=== PATIENT | female | born 1990 | race Caucasian/White ===

== ENCOUNTER 2018-10-26 16:55 | Inpatient (IN) ==
--- NOTE | 2018-10-26 17:47 | PROVIDER DOCUMENTATION ---
HPI-Respiratory General - General Chief Complaint: Shortness of Breath Stated Complaint: HARD TO BREATH/CHEST PAIN Time Seen by Provider: 10/26/18 17:37 Source: patient Allergies/Adverse Reactions: Patient Allergies Allergy/AdvReac Type Severity Reaction Status Date / Time No Known Allergies Allergy Verified 10/26/18 17:05 - History of Present Illness-Resp Nature of Presenting Problem: 28 YOF PRESENTS WITH C/O R FLANK PAIN AND SOB. SHE REPORTS PAIN IS WORSE ON INSPIRATION. SHE DOES REPORT WHEN QUESTIONED A FEVER "THE OTHER DAY OF BUT NONE SINCE THIS TIME". SHE DENIES N/V/D, NASAL CONGESTION, COUGH, CHILLS Quality of Pain: reports: aching, sharp Severity in ED: reports: moderate Onset/Duration: reports: 4 days ago Timing: reports: still present Context: denies: recent foreign travel, insect bite (possible tick), recent chemotherapy, multiple patients with similar complaints, recent URI, out of meds, sports/exercise, aspiration/choking, other Exposure: reports: unknown cause Cough Quality/Degree: reports: no cough Episode Frequency: no prior episodes Current Respiratory Medication Therapy: Initiated none Modifying Factors: improves with: nothing Associated Symptoms: reports: fever/chills, shortness of breath Similar Symptoms Previously?: No Recently seen or treated by another doctor?: No Review of Systems - Adult - REVIEW OF SYSTEMS - ADULT Constitutional: reports: fever (X 1 DAY 2 DAYS AGO). denies: no symptoms reported, see HPI, chills, fatique, night sweats, weight gain, weight loss, other Eyes: reports: no symptoms reported. denies: see HPI, discharge, dry eyes, decreased vision, blurred vision, double vision, eye pain, redness, other Ears, Nose, Mouth & Throat: reports: no symptoms reported. denies: see HPI, ear discharge, ear pain, hearing loss, tinnitus, epistaxis, sinus problem, nose pain, loose teeth, mouth/dental pain, mouth swelling, hoarseness, throat pain, throat swelling, other Cardiovascular: reports: no symptoms reported. denies: see HPI, chest pain, edema, heart murmur, irregular heart rate, orthopnea, palpitations, poor circulation, PND, syncope, other Respiratory: reports: see HPI, shortness of breath. denies: no symptoms reported, chronic cough, cough, dyspnea on exertion, excessive sputum production, hemoptysis, pleurisy, wheezing, other Gastrointestinal: reports: no symptoms reported. denies: see HPI, abdominal pain, hematemesis, constipation, diarrhea, difficulty swallowing, frequent heartburn, nausea, poor appetite, rectal bleeding, vomiting, other Genitourinary: reports: see HPI, flank pain (R). denies: no symptoms reported, dysuria, discharge, frequency, frequent UTI's, hematuria, hesitency, incontinence, urinary retention, urgency, other Musculoskeletal: reports: no symptoms reported. denies: see HPI, bone pain, back pain, frequent leg cramps, joint pain, joint swelling, muscle aches, muscle weakness, neck pain, other Integumentary: reports: no symptoms reported. denies: see HPI, hives, hair loss, itching, mole changes, nail changes, rash, skin sores/ulcer, skin thickening, other Neurological: reports: no symptoms reported. denies: see HPI, ataxia, dizziness/vertigo, headache/migraines, loss of balance, numbness, paresthesia, seizure, slurred speech, syncope, tremors, other Psychiatric: reports: no symptoms reported. denies: see HPI, anxiety, anti- depressant use, alcohol/drug dependence, depression, emotional problems, insomnia, panic attacks, suicidal thoughts, other Endocrine: reports: no symptoms reported. denies: see HPI, change in skin pigment, excessive sweating, goiter, cold intolerance, heat intolerance, increased hunger, increased thirst, polyuria, other Hematologic/Lymphatic: reports: no symptoms reported. denies: see HPI, blood clots, easy bruising, low blood count, lymphedema, prolonged bleeding, swollen lymph nodes, transfusions, other Allergic/Immunologic: reports: no symptoms reported. denies: see HPI, allergic reactions, allergic rhinitis, asthma, eczema, food allergy, frequent infections, hay fever, hives, positive PPD, urticaria, other Past History - Adult - PAST MEDICAL HISTORY-ADULT Review of Records: reports: Nursing Assessment Review, Social history reviewed & non-contributory. Physical Exam-General - PHYSICAL EXAM-ADULT Initial Vital Signs Reviewed: Yes - CONSTITUTIONAL General Appearance: appears well, alert, no apparent distress - EYES Eyes: PERRL/EOMI, pink conjunctivae - HEAD, EARS, NOSE, MOUTH & THROAT HENMT: normocephalic/atraumatic, moist mucous membranes, normal ENT inspection - NECK Neck: non-tender, full range of motion, supple, normal inspection - RESPIRATORY Respiratory: chest non-tender, lungs clear, normal breath sounds, no pleuratic chest pain, no respiratory distress, no accessory muscle use, increased rate - CARDIOVASCULAR Cardiovascular: normal peripheral pulses, regular rate, rhythm, no edema, no gallop, no JVD, no murmur - GASTROINTESTINAL (ABDOMEN) Abdominal Exam: normal bowel sounds, non tender, soft - LYMPHATIC Lymphatic: no adenopathy - MUSCULOSKELETAL Back Exam: normal inspection, no CVA tenderness, no vertebral tenderness, other (R FLANK IS TENDER TO PALPATION) Extremity: normal range of motion, non-tender, normal gait - SKIN Integumentary: normal color, normal turgor, warm/dry - NEUROLOGIC Neurologic: grossly normal - PSYCHIATRIC Psych/Mental Status: normal mood/affect, oriented x 3 Progress - PLAN OF CARE/RESULTS Progress/Plan/Lab Results: Vital Signs - 8 hr 10/26/18 17:01 10/26/18 20:43 10/26/18 20:45 Temperature 97.7 F Pulse Rate 92 H Respiratory Rate 16 Blood Pressure 165/98 O2 Sat by Pulse Oximetry 96 95 96 10/26/18 21:00 10/26/18 21:15 10/26/18 21:30 Temperature Pulse Rate Respiratory Rate Blood Pressure O2 Sat by Pulse Oximetry 95 94 L 94 L 10/26/18 21:45 10/26/18 22:15 10/26/18 22:16 Temperature Pulse Rate 81 Respiratory Rate 18 Blood Pressure 155/104 O2 Sat by Pulse Oximetry 95 95 95 Bedside Urine ED: Urine Bedside Start: 10/26/18 17:14 Freq: ORDERED Status: Active Protocol: Activity Type Activity Date Activity User E-Sign Co-Sign Detail Recorded Client Recorded Date Recorded By Document 10/26/18 18:01 [id number] 10/26/18 18:01 [id number] 10/26/18 18:01 Point of Care [Bedside Point of Care] -Lot # HCG - Results Negative -Control Line Visible? Yes Laboratory Results - last 24 hr 10/26/18 10/26/18 10/26/18 18:09 19:22 19:22 WBC 13.86 H RBC 4.53 Hgb 14.5 Hct 42.0 MCV 92.7 MCH 32.0 H MCHC 34.5 RDW Std Deviation 12.3 Plt Count 286 MPV 10.7 H Immature Gran % (Auto) 0.3 Neut % (Auto) 71.0 Lymph % (Auto) 16.2 L Bureau % (Auto) 11.0 H Eos % (Auto) 1.2 Baso % (Auto) 0.3 Immature Gran # (Auto) 0.04 Neut # (Auto) 9.83 H Lymph # (Auto) 2.25 Bureau # (Auto) 1.53 H Eos # (Auto) 0.17 Baso # (Auto) 0.04 D-Dimer, Quantitative Sodium 139 Potassium 4.1 Chloride 102 Carbon Dioxide 24 L Anion Gap 13 BUN 10 Creatinine 0.5 Estimated GFR/1.73 m2 > 60 BUN/Creatinine Ratio 20 Glucose 93 Calculated Osmolality 276 Calcium 9.5 Total Bilirubin 0.26 AST 19 ALT 20 Alkaline Phosphatase 90 Total Protein 7.2 Albumin 3.8 Globulin 3.4 Albumin/Globulin Ratio 1.1 Urine Source CLEAN CATCH Urine Color YELLOW Urine Turbidity CLEAR Urine pH 6.0 Ur Specific [place] 1.026 Urine Protein TRACE A Ur Glucose (Stick) NEGATIVE Ur Ketones (Stick) NEGATIVE Urine Blood NEGATIVE Urine Nitrite NEGATIVE Urine Bilirubin NEGATIVE Urobilinogen Dipstick NORMAL Urine Leukocytes SMALL A Urine WBC (Auto) <10 Urine RBC (Auto) <10 U Epithel Cells (Auto) <10 Urine Bacteria (Auto) 1+ 10/26/18 19:22 WBC RBC Hgb Hct MCV MCH MCHC RDW Std Deviation Plt Count MPV Immature Gran % (Auto) Neut % (Auto) Lymph % (Auto) Bureau % (Auto) Eos % (Auto) Baso % (Auto) Immature Gran # (Auto) Neut # (Auto) Lymph # (Auto) Bureau # (Auto) Eos # (Auto) Baso # (Auto) D-Dimer, Quantitative 2.62 H Sodium Potassium Chloride Carbon Dioxide Anion Gap BUN Creatinine Estimated GFR/1.73 m2 BUN/Creatinine Ratio Glucose Calculated Osmolality Calcium Total Bilirubin AST ALT Alkaline Phosphatase Total Protein Albumin Globulin Albumin/Globulin Ratio Urine Source Urine Color Urine Turbidity Urine pH Ur Specific [place] Urine Protein Ur Glucose (Stick) Ur Ketones (Stick) Urine Blood Urine Nitrite Urine Bilirubin Urobilinogen Dipstick Urine Leukocytes Urine WBC (Auto) Urine RBC (Auto) U Epithel Cells (Auto) Urine Bacteria (Auto) Orders Category Date Time Status ED: Urine Bedside ORDERED Care 10/26/18 17:14 Active CHEST-2 VIEWS [RAD] Stat Exams 10/26/18 17:06 Completed CTA [CT ANGIOGRM PULMONARY ARTERIES] [CT] Stat Exams 10/26/18 20:14 Taken CBC WITH ELECTRONIC DIFF [HEME] Stat Lab 10/26/18 19:22 Completed CMP [COMPREHENSIVE METABOLIC PANEL] [CHEM] Stat Lab 10/26/18 19:22 Completed D-DIMER [COAG] Stat Lab 10/26/18 19:22 Completed UA NIMS W/REFLEX CULT [URINALYSIS] Routine Lab 10/26/18 18:09 Completed URINE CULTURE [RM] Routine Lab 10/26/18 18:51 Received Enoxaparin 1 mg/kg [Lovenox 1 mg/kg] Med 10/26/18 23:01 Once 1 each SUBQ NOW ONE Ketorolac [Toradol] Med 10/26/18 18:53 Discontinued 30 mg IM NOW ONE EKG [EKG] Stat Ther 10/26/18 17:06 Ordered Result Diagrams: 10/26/18 19:22 10/26/18 19:22 - EKG 1 Time of EKG reading by physician:: 17:10 EKG Read and Signed by:: Pb Prakash EKG Interpretation (*Must complete 3 of following elements*): Normal Rate: 88 Rhythm: NSR Bath: normal QRS: normal UT Interval: normal ST Wave: normal - CT/MRI 1 CT Study: Angiogram Impression: Abnormal (MULTIFOCAL PTE WITH R PLEURAL EFFUSION, R CONSOLIDATION THAT COULD REPRESENT EARLY INFACT. - summer) - CONSULTS/PCP/HOSPITALIST Notification #1 *Consult/PCP/Hospitalist*: DR MG @ 2051 Departure - Departure Date of Disposition Decision: 10/26/18 Time of Disposition Decision: 22:53 DIAGNOSIS: PTE (pulmonary thromboembolism), SOB (shortness of breath) Disposition: ADMITTED INPATIENT 09 Certified Medical Emergency: Emergent Condition: Stable Referrals and Follow-Ups: None,PCP [Primary Care Provider] - - Critical Care Note This patient required my direct & personal management of CC.: No Attestation - Physician/ OSWALDO Attestation Patient care was provided by Advanced Practice Provider:: Yes Advanced Practice Provider:: Jenni Leigh Advanced Practice Provider documentation review:: The Mid-level provider documentation, treatment plan and medical decision making was reviewed by the physician who agrees with all treatment and medical decision making by the MLP. The physician spent face to face time with patient:: No Advanced Practice Provider documentation review:: Supervising physician onsite and consulted in the evaluation and care of this patient. The physician did not have a face to face encounter with the patient.
[2018-10-26 18:18] LABS: URINE SOURCE CLEAN CATCH
[2018-10-26 18:27] LABS: BILIRUBIN URINE NEGATIVE (NEGATIVE); BLOOD URINE NEGATIVE (NEGATIVE); COLOR YELLOW; GLUCOSE URINE NEGATIVE (NEGATIVE); KETONE URINE NEGATIVE (NEGATIVE); LEUKOCYTES URINE SMALL (NEGATIVE); NITRITE URINE NEGATIVE (NEGATIVE); PROTEIN URINE TRACE mg/dL (NEGATIVE); SP GRAVITY URINE 1.026; TURBIDITY URINE CLEAR (CLEAR); UR EPITHELIAL CELLS <10 /HPF (<10); URINE BACTERIA 1+ /HPF; URINE RBC <10 /HPF (<10); URINE WBC <10 /HPF (<10); UROBILINOGEN URINE NORMAL (NORMAL)
[2018-10-26] MEDS ORDERED: TORADOL IM ONE (18:53)
[2018-10-26 19:40] LABS: BASO# 0.04 X1000 (0.0-0.2); BASO% 0.3 % (0.0-0.8); EOS# 0.17 X1000 (0.0-0.7); EOS% 1.2 % (0.0-10.0); HEMOGLOBIN 14.5 g/dL (12.0-16.0); IMM GRAN# 0.04 X1000 (0.0-0.04); IMM GRAN% 0.3 % (0.0-0.5); LYMPH# 2.25 X1000 (1.2-3.4); LYMPH% 16.2 % (20.5-51.1); MCHC 34.5 g/dL (33-37); MCV 92.7 FL (81-99); MONO# 1.53 X1000 (0.11-0.59); MPV 10.7 FL (7.4-10.4); NEUT# 9.83 X1000 (1.4-6.5); PLT 286 X1000 (130-400); RBC 4.53 XMIL (4.2-5.4); RDW 12.3 % (11.5-14.5); WBC 13.86 X1000 (4.8-10.8)
[2018-10-26 19:57] LABS: AGAP 13; ALB/GLOB RATIO 1.1; ALBUMIN 3.8 g/dL (3.5-5.0); ALKALINE PHOSPHATASE 90 U/L (32-104); BUN 10 mg/dL (8-22); CALCIUM 9.5 mg/dL (8.8-10.2); CHLORIDE 102 mmol/L (98-107); COSMO 276; CREATININE 0.5 mg/dL (0.5-0.9); ESTIMATED GFR > 60; GLUCOSE 93 mg/dL (70-104); GOT 19 U/L (10-30); GPT 20 U/L (10-36); POTASSIUM 4.1 mmol/L (3.5-5.1); SODIUM 139 mmol/L (136-145); TCO2 24 mmol/L (25-35); TOTAL BILIRUBIN 0.26 mg/dL (0.20-1.00); TOTAL PROTEIN 7.2 g/dL (6.3-8.3)
--- NOTE | 2018-10-26 21:02 | Diag Imaging Result Doc PS360 ---
EXAM: CHEST-2 VIEWS INDICATION: SOB TECHNIQUE: 2 views COMPARISON: None. FINDINGS: Inspiration is suboptimal. There is hazy opacity at the lung bases that likely represents atelectasis. However, mild infiltrate is also possible. There is no discrete pleural fluid collection or pneumothorax. The cardiomediastinal silhouette and central vasculature are grossly unremarkable. IMPRESSION: Bibasilar atelectasis +/- mild infiltrate. Electronically signed by Rome Perez 10/26/2018 9:00 PM
[2018-10-26] MEDS ORDERED: LOVENOX 1 MG/KG SUBQ ONE (23:01)
[2018-10-26] MEDS ORDERED: LOVENOX ONE (23:16)
--- NOTE | 2018-10-27 00:19 | HISTORY AND PHYSICAL ---
PRIMARY CARE PHYSICIAN: None. CHIEF COMPLAINT: Shortness of breath. HISTORY OF PRESENTING ILLNESS: A 28-year-old obese female without any significant past medical history, presented to emergency department with 4-days history of having worsening shortness of breath. The patient states that every time she took a deep breath her chest would hurt and her shortness of breath was worsening. The patient was evaluated in the emergency department, she had laboratories done which did show elevated D-dimer. Subsequently, she underwent CT angiogram, which did show a right lower lobe pulmonary embolism. Due to her presenting symptoms, she will require admission for further management. At time of my examination, patient denied any headache, fever, chills, hemoptysis, melena, weight changes, but complained of shortness of breath. PAST MEDICAL HISTORY: None. PAST SURGICAL HISTORY: Tonsillectomy. ALLERGIES: No known drug allergies. CURRENT MEDICATIONS: None. SOCIAL HISTORY: No history of smoking, alcohol, or illicit drug use. FAMILY HISTORY: Positive for coronary disease in Father. REVIEW OF SYSTEMS: Fourteen-point review of system as listed in HPI. Other systems negative. PHYSICAL EXAMINATION: GENERAL: Cooperative, friendly female. She is resting more comfortably now. VITAL SIGNS: Temperature 97.7 degrees, pulse 92, respirations 16, blood pressure 165/98. HEENT: Atraumatic, normocephalic. Extraocular movements intact. PERRLA. NECK: Supple. CHEST: Clear to auscultation. CARDIOVASCULAR: Regular rate and rhythm. ABDOMEN: Soft, obese, positive bowel sounds. EXTREMITIES: Trace edema. NEUROLOGIC: She is awake, alert, oriented x3. GENITOURINARY: No bladder distention. SKIN: Warm. LABORATORIES AND STUDIES: WBC 13.86, hemoglobin 14.5, hematocrit 42.0, platelets 286,000. Sodium 139, potassium 4.1, chloride 102, CO2 is 24, BUN is 10, creatinine 0.5. Glucose is 93. D-dimer is 2.62. ASSESSMENT: This is a 28-year-old female without any significant past medical history, presented to emergency department with complaint of shortness of breath for the past 4 days or so. She was evaluated in the emergency department. She had imaging done which did show a right lower lobe pulmonary embolism. Due to her presenting symptoms, she will call admission for further management. 1. Right lower lobe pulmonary embolism. 2. Obesity. PLAN: 1. We will admit patient to medical floor with telemetry. 2. We will start patient on Lovenox 1 mg/kg subcu q.12 hours. 3. Given the patient adequate pain control. 4. Put patient on supplemental oxygen. 5. Will do hypercoagulable workup. 6. We will check also venous Doppler's of the lower extremities. 7. We will continue to follow and reassess, make further recommendation based on patient's clinical course. cc: Brent South MD
[2018-10-27 03:40] LABS: BASO# 0.03 X1000 (0.0-0.2); BASO% 0.2 % (0.0-0.8); EOS% 1.5 % (0.0-10.0); HEMATOCRIT 39.8 % (37.0-47.0); HEMOGLOBIN 13.6 g/dL (12.0-16.0); IMM GRAN# 0.03 X1000 (0.0-0.04); IMM GRAN% 0.2 % (0.0-0.5); LYMPH# 2.59 X1000 (1.2-3.4); LYMPH% 20.1 % (20.5-51.1); MCH 31.9 PG (27-31); MCHC 34.2 g/dL (33-37); MCV 93.2 FL (81-99); MONO# 1.88 X1000 (0.11-0.59); MONO% 14.6 % (1.7-9.3); MPV 10.8 FL (7.4-10.4); NEUT# 8.18 X1000 (1.4-6.5); NEUT% 63.4 % (42.2-75.2); PLT 262 X1000 (130-400); RBC 4.27 XMIL (4.2-5.4); RDW 12.4 % (11.5-14.5); WBC 12.91 X1000 (4.8-10.8)
[2018-10-27 04:07] LABS: AGAP 12; BUN 11 mg/dL (8-22); CALCIUM 8.6 mg/dL (8.8-10.2); CHLORIDE 102 mmol/L (98-107); COSMO 281; CREATININE 0.7 mg/dL (0.5-0.9); ESTIMATED GFR > 60; GLUCOSE 111 mg/dL (70-104); POTASSIUM 3.4 mmol/L (3.5-5.1); SODIUM 141 mmol/L (136-145); TCO2 27 mmol/L (25-35)
--- NOTE | 2018-10-27 09:24 | Diag Imaging Result Doc PS360 ---
EXAM: CT ANGIOGRM PULMONARY ARTERIES INDICATION: SOB, ELEVATED D-DIMER TECHNIQUE: This exam was performed using automated exposure control, adjustment of mA or kV according to patient size, and/or use of iterative reconstruction technique. Thin section axial images and 3-D MIPS were obtained. COMPARISON: None. FINDINGS: Resolution is somewhat limited by motion artifact. There are filling defects identified in the right interlobar pulmonary artery extending into the right middle lobar pulmonary artery. There are other filling defects identified within the right lower lobe segmental arteries and left upper lobar pulmonary artery indicating pulmonary emboli. Clot burden is moderate. There is no evidence of heart strain. There is no cardiomegaly. There is no evidence of aortic dissection or aneurysm. There is no significant mediastinal or hilar lymphadenopathy. There is atelectasis at both lung bases, more prominent on the right and there is trace pleural fluid on the right as well. Given the opacity at the right lung base, developing pulmonary infarct cannot be excluded. There is no pneumothorax. Limited views of the upper abdomen are essentially unremarkable. IMPRESSION: 1.Bilateral acute pulmonary emboli, mainly on the right, with a moderate clot burden. 2.Trace effusion on the right and bibasilar atelectasis that is worse on the right. Superimposed developing infarct in the right lung base cannot completely be excluded given the presence of pulmonary emboli in the right lower lobe. Electronically signed by Rome Perez 10/27/2018 9:22 AM
[2018-10-27] MEDS: LOVENOX SUBQ SCH ×2 (11:23→22:03)
[2018-10-27] MEDS ORDERED: KLOR-CON PO ONE (11:45)
[2018-10-27] MEDS ORDERED: ZOFRAN IV PRN (11:46)
[2018-10-27] MEDS ORDERED: TYLENOL PO PRN (11:46)
--- NOTE | 2018-10-27 15:21 | ECHO REPORT ---
ORDER DATE: 10/27/2018 INDICATION: Pulmonary embolus. FINDINGS: 1. The right atrium appears to be normal in size. 2. Mild tricuspid regurgitation. There is insufficient data to accurately estimate the RV systolic pressure. 3. Right ventricle appears to be normal in size with normal RV systolic function. 4. Trace pulmonic insufficiency. 5. Normal left atrial size with a volume index of 24. 6. No mitral valve prolapse. Trace mitral regurgitation. No evidence of mitral stenosis. 7. Normal LV size, end-diastolic dimension of 5.3. Normal wall thicknesses with a posterior and interventricular septal wall thickness of 0.8 and 1.1 cm respectively. Normal LV systolic function. Estimated EF 60 to 65% with normal wall motion. 8. Aortic valve opens well. There is no evidence of stenosis or insufficiency. 9. Aorta appears normal in visualized segments. 10. No pericardial effusion seen. cc: MD Nahun Medellin MD
--- NOTE | 2018-10-27 16:19 | PROGRESS NOTE ---
DATE: 10/27/2018 SUBJECTIVE: Patient has no major complaints. No shortness of breath. No chest pain. No leg pain. OBJECTIVE: Blood pressure 143/84, heart rate 76, respiratory rate of 20, temperature 97.7 degrees.Cardiovascular: Regular rate and rhythm. Pulmonary: Bilateral breath sounds clear to auscultation. GI: Was soft, nontender, nondistended. Bowel sounds are positive. Extremities: Her left leg to me looked a little bit more swollen, but no cords were palpated. PROBLEM: PE. We will continue anticoagulation. She is on Lovenox. She is uninsured, so we will likely have to do Coumadin which we will initiate and follow. Her venous Dopplers. Preliminarily, looked like a left lower extremity DVT, popliteal and peroneal veins. She has really almost no risk factors for this. She is obese. She smoked up to about 2 months ago, but no oral contraceptives. No family history. 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 No prolonged immobilization. No trauma. No surgeries. So, it is very difficult to understand. She either has a thrombophilia, it is left-sided, so we may need to consider May-Thurner syndrome and we will continue to monitor. DISPOSITION: Pending her clinical status. We will need to get her set up with Coumadin and close follow-up. cc: Surjit Singh MD
[2018-10-27 16:55] LABS: INR 1.13; PROTIME 14.7 Seconds (11.0-16.0)
[2018-10-27] MEDS: COUMADIN PO SCH (22:02)
[2018-10-28 07:26] LABS: BASO# 0.03 X1000 (0.0-0.2); BASO% 0.3 % (0.0-0.8); EOS# 0.25 X1000 (0.0-0.7); EOS% 2.4 % (0.0-10.0); HEMATOCRIT 38.8 % (37.0-47.0); HEMOGLOBIN 12.9 g/dL (12.0-16.0); IMM GRAN# 0.03 X1000 (0.0-0.04); IMM GRAN% 0.3 % (0.0-0.5); MCH 31.2 PG (27-31); MCHC 33.2 g/dL (33-37); MCV 93.9 FL (81-99); MONO# 1.26 X1000 (0.11-0.59); MPV 11.2 FL (7.4-10.4); NEUT# 6.71 X1000 (1.4-6.5); PLT 276 X1000 (130-400); RBC 4.13 XMIL (4.2-5.4); RDW 12.1 % (11.5-14.5); WBC 10.48 X1000 (4.8-10.8)
[2018-10-28 07:51] LABS: AGAP 11; BUN 9 mg/dL (8-22); CALCIUM 8.9 mg/dL (8.8-10.2); CHLORIDE 98 mmol/L (98-107); COSMO 265; CREATININE 0.6 mg/dL (0.5-0.9); ESTIMATED GFR > 60; GLUCOSE 97 mg/dL (70-104); POTASSIUM 3.7 mmol/L (3.5-5.1); SODIUM 133 mmol/L (136-145); TCO2 24 mmol/L (25-35)
--- NOTE | 2018-10-28 08:38 | CONSULTATION ---
DATE OF CONSULTATION: 10/28/2018 CHIEF COMPLAINT: Shortness of breath. HISTORY OF PRESENT ILLNESS: This is a 28-year-old, obese, female with no significant past medical history, who presented to the emergency department a few days ago having worsening shortness of breath. She underwent a CT angiogram, and did show that she had a right lower lobe pulmonary embolism and an elevated D-dimer. PAST MEDICAL HISTORY: None. PAST SURGICAL HISTORY: Tonsillectomy. ALLERGIES: No known drug allergies. CURRENT MEDICATIONS: None. SOCIAL HISTORY: Denies tobacco, alcohol, or illicit drug use. FAMILY HISTORY: Positive for coronary disease with her father. REVIEW OF SYSTEMS: A 10-point review of systems was obtained, and the pertinents are listed within the HPI, otherwise noncontributory. PHYSICAL EXAMINATION: General: This is a 28-year-old, obese, female, resting quietly in bed. At the present time, denies shortness of breath. Vital Signs: Blood pressure 145/68, pulse 78, respirations 24, O2 saturation 99% on room air, temperature 97.7 degrees. HEENT: Head is atraumatic, normocephalic. PERRLA noted. Neck: Supple. Trachea midline. Cardiovascular: Regular rate and rhythm. Respiratory: Clear to auscultation in all lung hernandez. Abdomen: Soft. Positive bowel sounds in all 4 quadrants. Extremities: Without cyanosis. Trace edema. There are +2 pedal pulses. Neurologic: Alert and oriented x3. IMAGING AND LABORATORY DATA: White blood cells 12.91, red blood cells 4.27, hematocrit 39.8, hemoglobin 13.6. PTT 14.7, INR 1.13. D-dimer 2.62. Sodium 141, potassium 3.4, chloride 102, carbon dioxide 27, glucose 111, calcium 8.6. Chest x-ray on 10/26/2018 revealed bibasilar atelectasis, plus/minus mild infiltrate. ASSESSMENT AND PLAN: Pulmonary embolism. Continue anticoagulant therapy with Coumadin. Supplemental oxygen as needed. Will obtain echocardiogram and venous Doppler. Thank you for the courtesy of this consult. cc: Nahun Arroyo MD
[2018-10-28] MEDS: LOVENOX SUBQ SCH ×2 (14:00→22:10)
--- NOTE | 2018-10-28 14:54 | Diag Imaging Result Doc PS360 ---
EXAM: CT ABD/PELVIS W/IV CONT ONLY INDICATION: evaluate for May Thurner abnormality TECHNIQUE: This exam was performed using automated exposure control, adjustment of mA or kV according to patient size, and/or use of iterative reconstruction technique. COMPARISON: None. FINDINGS: Atelectasis and consolidation at both lung bases is again identified. There has been improvement since the prior CTA chest dated 10/26/2018. However, there are still densities at the right lung base that could represent pulmonary infarcts. The gallbladder is contracted. The liver, spleen, pancreas, adrenal glands, kidneys, and urinary bladder are unremarkable. There is a 4.4 cm left ovarian cyst. The reproductive tract is grossly unremarkable as imaged, otherwise. The appendix is normal. There is no evidence of bowel wall thickening or bowel obstruction. There is mild compression of the left common iliac vein by the overlying right common iliac artery, which may predispose to mild May Thurner syndrome. It is not causing occlusion. No dilated venous collaterals are identified. IMPRESSION: 1.Mild compression of the left common iliac vein by the right common iliac artery which could predispose to May Thurner syndrome. However, there is no complete occlusion and no discrete venous collaterals are identified. 2.Atelectasis/infiltrate, at the lung bases but mainly on the right have improved somewhat. However, there are still densities at the right lung base that could represent residual pulmonary infarct related to known acute pulmonary emboli. Electronically signed by Rome Perez 10/28/2018 2:51 PM
--- NOTE | 2018-10-28 17:39 | PROGRESS NOTE ---
DATE: 10/28/2018 SUBJECTIVE: The patient has no major complaints. OBJECTIVE: Vitals: Blood pressure is 144/92, heart rate 75, respiratory rate 28, temperature 98 degrees, 98% on room air. Cardiovascular: Regular rate and rhythm. Pulmonary: Bilateral breath sounds, clear to auscultation. GI: Soft, nontender, nondistended. Bowel sounds are positive. PROBLEM LIST: 1. Deep venous thrombosis/pulmonary embolism. 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 We will to continue Lovenox and Coumadin. She seems to be improving. 2. Deep venous thrombosis. We will continue anticoagulation as described, work on ambulation, and see how she does. DISPOSITION: She is uninsured, so we will have to achieve an INR above 2 before we can plan for discharge. We will continue to follow closely. cc: Surjit Singh MD
[2018-10-28] MEDS: COUMADIN PO SCH (22:11)
[2018-10-29 07:09] LABS: BASO# 0.03 X1000 (0.0-0.2); BASO% 0.3 % (0.0-0.8); EOS# 0.32 X1000 (0.0-0.7); EOS% 3.3 % (0.0-10.0); HEMATOCRIT 39.3 % (37.0-47.0); HEMOGLOBIN 13.4 g/dL (12.0-16.0); IMM GRAN# 0.03 X1000 (0.0-0.04); IMM GRAN% 0.3 % (0.0-0.5); LYMPH# 2.32 X1000 (1.2-3.4); LYMPH% 23.7 % (20.5-51.1); MCH 31.8 PG (27-31); MCHC 34.1 g/dL (33-37); MCV 93.3 FL (81-99); MONO# 1.04 X1000 (0.11-0.59); MONO% 10.6 % (1.7-9.3); MPV 10.7 FL (7.4-10.4); NEUT# 6.05 X1000 (1.4-6.5); NEUT% 61.8 % (42.2-75.2); PLT 320 X1000 (130-400); RBC 4.21 XMIL (4.2-5.4); WBC 9.79 X1000 (4.8-10.8)
[2018-10-29 07:40] LABS: AGAP 13; BUN 11 mg/dL (8-22); CHLORIDE 101 mmol/L (98-107); COSMO 275; CREATININE 0.6 mg/dL (0.5-0.9); ESTIMATED GFR > 60; GLUCOSE 106 mg/dL (70-104); POTASSIUM 3.9 mmol/L (3.5-5.1); SODIUM 138 mmol/L (136-145); TCO2 24 mmol/L (25-35)
[2018-10-29 07:41] LABS: CALCIUM 8.8 mg/dL (8.8-10.2)
--- NOTE | 2018-10-29 08:41 | EKG Report ---
Test Performed on : 10/26/2018 5:09:23 PM Test Reason : SOB Blood Pressure : / mmHG Vent. Rate : 088 BPM Atrial Rate : 088 BPM P-R Int : 160 ms QRS Dur : 078 ms QT Int : 338 ms P-R-T Axes : 029 077 002 degrees QTc Int : 408 ms Normal sinus rhythm. Normal ECG No previous ECGs available Unconfirmed Result
[2018-10-29] MEDS: LOVENOX SUBQ SCH ×3 (10:27→23:00)
[2018-10-29 14:00] LABS: INR 1.14; PROTIME 14.8 Seconds (11.0-16.0)
--- NOTE | 2018-10-29 15:25 | PULMONOLOGY PROGRESS NOTE ---
DATE: 10/29/2018 SUBJECTIVE: The patient is awake, alert, and conversant. She denies shortness of breath. She is without specific complaints today. PHYSICAL EXAMINATION: General: Reveals an obese white female resting comfortably, in no distress. Vital signs: Blood pressure 130/82, heart rate 56, respiratory rate 18, oxygen saturation 98% on room air. HEENT: Pupils are equal and reactive. Oropharynx appears clear. Neck: Supple. Chest: Clear to auscultation and percussion. Cardiac: S1, S2. Abdomen: Obese and soft. Extremities: Without edema. LABORATORIES: No new radiographic data. White blood count 9.79, hemoglobin 13.4, platelet count 320,000. Sodium 138, potassium 3.9, chloride 101, bicarbonate 24, BUN 11, creatinine 0.6. IMPRESSIONS: A 28-year-old with: 1. Acute pulmonary embolus. 2. Deep vein thrombosis. 3. Obesity. PLAN: 1. Continue anticoagulation. 2. Encourage weight loss. cc: Brannon Addison MD
[2018-10-29] MEDS ORDERED: COUMADIN PO ONE (18:15)
--- NOTE | 2018-10-29 18:34 | PROGRESS NOTE ---
DATE: 10/29/2018 SUBJECTIVE: She has no major complaints. She is doing well. OBJECTIVE: Vital signs: Blood pressure 136/56, heart rate of 66, respiratory rate of 19, temperature 97.9 degrees, 98% on room air. Cardiovascular: Regular rate and rhythm. Pulmonary: Bilateral breath sounds. Clear to auscultation. GI: Was soft, nontender, nondistended. Bowel sounds are positive. LABORATORY DATA: White count 9, hemoglobin and hematocrit 13 and 39, platelets 320,000. INR is only 1.14. PROBLEM LIST: Venous thromboembolism/pulmonary embolism. She is self-pay, so we are going to get her Coumadin because she will need treatment for at least 6 months. I do not think we can use any NOACs but overall she is improved. 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 We will see what is and we will go from there. DISPOSITION: Pending her clinical status. Home when INR is above 2 or at least close to it. I am going to bump up her Coumadin tonight. cc: Surjit Singh MD MTDD
--- NOTE | 2018-10-29 19:53 | Extremity Venous Study ---
PROCEDURE NAME: Venous U/S Bilateral Legs - 10/27/2018 REQUESTING PHYSICIAN: Dr. South. EMS INSTRUCTOR: Alejandro. TEST: Bilateral lower extremity venous study. INDICATIONS: Positive PE. EQUIPMENT: Viewpoint Digital Vivid E9 ultrasound system a 9 L-D transducer. FINDINGS: Images of the bilateral lower extremity venous systems were obtained in both sagittal and transverse planes. Doppler was used to evaluate veins for spontaneity, phasicity, respiratory excursion and digital augmentation. RESULTS: Nonocclusive acute DVT in the left popliteal vein and peroneal veins. INTERPRETATION: Nonocclusive acute DVT left popliteal vein and peroneal veins. Per the gi technician's note preliminary report was given Dr. Singh at 3:13 on the day of study. cc: MD Brent Sanderson MD
[2018-10-30 06:54] LABS: INR 1.26; PROTIME 16.1 Seconds (11.0-16.0)
[2018-10-30] MEDS: LOVENOX SUBQ SCH ×2 (13:15→22:40)
--- NOTE | 2018-10-30 15:10 | PROGRESS NOTE ---
DATE: 10/30/2018 SUBJECTIVE: Patient has no major complaints. She is doing well. She is very, understandably, upset. I would not say upset but not happy about having to continue to be here, but we do not have a lot of options because of her condition. OBJECTIVE: Vital signs: Blood pressure 148/64, heart rate 67, respiratory rate 20, temperature 98.1 degrees, 97% on room air. Cardiovascular: Regular rate and rhythm. Pulmonary: Bilateral breath sounds. Clear to auscultation. GI: Soft, nontender, nondistended. Extremities: Left lower extremity, there is no real swelling. PROBLEM: Venous thromboembolism, pulmonary embolism. The patient is on Coumadin and Lovenox. I am suspicious she has May-Thurner syndrome because she does have iliac artery, compression of her iliac vein on the left side, although not complete occlusion, but I think enough that it is suspicious for that. In any case, she will need anticoagulation. Right now does not have insurance for the medications since she is going to need to be on it skilled nursing, but we are continuing Lovenox and then adjusting Coumadin dosing until we can get INR therapeutic. It has bumped up a little bit, so I anticipate another 1 to 2 days and we should be able to get her home. cc: Surjit Singh MD
[2018-10-30] MEDS: COUMADIN PO SCH (21:29)
[2018-10-31 07:09] LABS: INR 1.42; PROTIME 17.6 Seconds (11.0-16.0)
[2018-10-31] MEDS: LOVENOX SUBQ SCH ×2 (10:15→22:03)
--- NOTE | 2018-10-31 16:10 | PROGRESS NOTE ---
DATE: 10/31/2018 SUBJECTIVE: Patient has no major complaints. OBJECTIVE: She seems to be doing okay. Blood pressure is 122/67, heart rate of 88, respiratory rate 24, temperature 98.2 degrees, and 98 percent on room air. Cardiovascular regular rate and rhythm. Pulmonary bilateral breath sounds clear to auscultation. GI is soft, nontender, nondistended. Bowel sounds are positive. INR is 1.42. PROBLEM LIST: 1. Venous thromboembolism, pulmonary embolism. We will continue Coumadin and Lovenox. We will continue to follow. 2. We will need to anticoagulate for at least 6 months, home when her INR is above 2. She is self-pay. We do not really have any other options long-term although she may get insurance in the next couple months. 3. We will continue to follow. cc: Surjit Singh MD
[2018-10-31] MEDS: COUMADIN PO SCH (22:01)
--- NOTE | 2018-11-01 07:23 | Diag Imaging Result Doc PS360 ---
EXAM: CHEST-1 VIEW 11/01/2018 HISTORY: SOB TECHNIQUE: AP portable at 0545 COMMENT: There are ill-defined opacities in both lung bases. This was also present on 10/26/2018 but is slightly worse. The appearance may be worsened in part due to relatively less optimal inspiration. IMPRESSION: Bibasilar atelectasis and/or pneumonia. Electronically signed by Canelo Napoles 11/01/2018 7:20 AM
[2018-11-01 07:41] LABS: HEMATOCRIT 38.5 % (37.0-47.0); HEMOGLOBIN 12.9 g/dL (12.0-16.0); MCH 31.8 PG (27-31); MCHC 33.5 g/dL (33-37); MCV 94.8 FL (81-99); MPV 10.4 FL (7.4-10.4); RBC 4.06 XMIL (4.2-5.4); RDW 12.1 % (11.5-14.5); WBC 9.9 X1000 (4.8-10.8)
[2018-11-01 07:57] LABS: INR 1.36
[2018-11-01 08:05] VITALS: BP 144/68
--- NOTE | 2018-11-01 10:09 | DISCHARGE SUMMARY ---
ADMISSION DATE: 10/27/2018 DISCHARGE DATE: 11/01/2018 She presented with shortness of breath. A 28-year-old black female with a past medical history that really was unremarkable. She presented to the emergency room, and had 4-day history of having worsening shortness of breath. The patient states that each time she took a breath she had a little bit of pleuritic pain in that right lateral side, and this intensified. In the emergency department, labs did show an elevated D-dimer. She underwent CT angiogram that showed right lower lobe pulmonary embolism so was admitted to the hospital, and put on anticoagulant. The patient has a lower extremity venous study noninvasive. She had a nonocclusive acute DVT in the left popliteal vein and peroneal veins. The patient I believe was started on Coumadin. She had an echocardiogram with Doppler on 10/27. Left ventricular size was normal, and ejection fraction 60% to 65%. Right ventricle appears to be normal in size. Normal right ventricular systolic function. Abdominal and pelvic CT with mild compression of the left common iliac vein by the right common iliac artery, which could predispose to May Thurner syndrome. However, there is no complete occlusion. No discrete venous collaterals are identified. Atelectasis versus infiltrate. Dr. Arroyo was consulted for pulmonary embolism. Continue anticoagulant, and started Coumadin. She had her chest x-ray done this morning bibasilar atelectasis. Clinically, no sign of pneumonia. She will need anticoagulation 6 months to a year. Her Protime was 17.0. It is important that she get follow up with her primary care and get Protime checked once a week. I am going to let her go home. Currently, she is getting Coumadin 7.5 mg at bedtime. We will let her go on 5 mg at bedtime, but important that she get Protime checked once a week, and get follow up. Studies were sent for D-dimer and Factor V Leiden that was canceled. See other studies that are pending. cc: Jasen Martinez MD
[2018-11-01] MEDS: LOVENOX SUBQ SCH (10:37)
== END 2018-11-01 11:57 | disposition home or self-care (01) | DRG 176 ==
LOC: ED 16:55 → SUATTDRO 10-27 02:28 → 3N 10-27 02:28
PROVIDERS: ATTEND Emergency Medicine